=== PATIENT | male | born 1970 | race American Indian/Alaskan Native ===

== ENCOUNTER 2021-04-07 09:01 | Outpatient (CLI) | payer OTHER ==
--- NOTE | 2021-04-07 09:46 | XRay Report ---
BILATERAL KNEES 2 VIEWS EACH. INDICATION / CLINICAL INFORMATION: BILATERAL KNEE PAIN COMPARISON: None available. FINDINGS: BONES / JOINT(S): No acute fracture or subluxation. No significant arthritis. SOFT TISSUES: No significant abnormality. ADDITIONAL FINDINGS: None. Signer Name: Yuri Iqbal MD Signed: 04/07/2021 9:41 AM Workstation Name: [id number]
--- NOTE | 2021-04-07 09:46 | XRay Report ---
Lumbar spine 3 views INDICATION: Back pain FINDINGS: Mild wedging in lower thoracic spine vertebral bodies. Endplate changes at L4-5 and L5-S1 w ith facet arthropathy. No subluxation is seen. Visualized sacrum appears normal. Signer Name: Andrae Gaines MD Signed: 04/07/2021 9:42 AM Workstation Name: [id number]
== END 2021-04-07 09:02 | disposition home or self-care (01) ==
LOC: XRAY 09:01
PROVIDERS: ATTEND Internal Medicine
DX: M47.817 Spondylosis without myelopathy or radiculopathy, lumbosacral region (principal); M25.562 Pain in left knee; M25.561 Pain in right knee
CPT/HCPCS: 72100